=== PATIENT | female | born 1965 | race Caucasian/White ===

== ENCOUNTER 2017-09-26 11:42 | Inpatient (IN) | payer OTHER ==
[~2017-09-26] VITALS: Ht 157.5 cm; Wt 94.8 kg
[2017-09-26] VITALS (14 sets, daily range): BP systolic 105–160; BP diastolic 49–95
[2017-09-26] MEDS ORDERED: NORCO 5-325 TA1 EACH ORAL (13:02)
[2017-09-26] MEDS ORDERED: Bupivacaine 0.5% Inj 30 ml vial INJ ONE (13:44)
[2017-09-26] MEDS ORDERED: Thrombin 5000 units spray kit TOPIC ONE (13:44)
[2017-09-26] MEDS ORDERED: Thrombin 5000 units TOPIC ONE ×2 (13:44→13:52)
[2017-09-26] MEDS ORDERED: Bacitracin 50000 Units Vial ONE ×2 (13:45→13:53)
[2017-09-26] MEDS ORDERED: Gelfoam Absorbable 1gm powder pkt TOPIC ONE (13:45)
[2017-09-26] MEDS ORDERED: Ropivacaine 5mg/ml Vial 30ml INJ ONE (13:45)
[2017-09-26] MEDS ORDERED: Lidocaine 1% MPF 10mg/ml 5ml ONE (13:51)
[2017-09-26] MEDS ORDERED: Midazolam 2mg/2ml Inj ONE (13:51)
[2017-09-26] MEDS ORDERED: fentaNYL 100 mcg/2 mL IV ONE (13:51)
[2017-09-26] MEDS ORDERED: Naloxone 0.4mg/ml Inj IVP PRN (14:00)
--- NOTE | 2017-09-26 14:39 | Anethesia Preoperative Eval ---
Anesthesia Pre-op PMH/ROS General Date of Evaluation: September 26, 2017 Time of Evaluation: 14:28 Anesthesiologist: Ant ASA Score: ASA 3 Mallampati Score Class I : Soft palate, uvula, fauces, pillars visible Class II: Soft palate, uvula, fauces visible Class III: Soft palate, base of uvula visible Class IV: Only hard plate visible Mallampati Classification: Class III Surgeon: Zechariah Diagnosis: Cervical radiculopathy Surgical Procedure: ACDF c5-C6 Anesthesia History: none Social History: current smoker Family History: no anesthesia problems Allergies: Coded Allergies: SULFA (SULFONAMIDE ANTIBIOTICS) (Verified Allergy, Mild, 09/26/17) HIVES Past Medical History Cardiovascular: Reports: HTN - mild; Denies: CAD, RI, valve dz, arrhythmia, other Pulmonary: Reports: COPD - life long h/o smoking Gastrointestinal/Genitourinary: Reports: GERD - mild; Denies: CRI, ESRD, other Neurologic/Psychiatric: Reports: other - chronic pain Endocrine: Denies: DM, hypothyroidism, steroids, other HEENT: Denies: cataract (L), cataract (R), glaucoma, [place] (L), [place] (R), other Hematology/Immune: Denies: anemia, DVT, bleeding disorder, other Musculoskeletal/Integumentary: Denies: OA, RA, DJD, DDD, edema, other Other: obesity PMH Narrative: as above PSxH Narrative: BTL, repair of rectovaginal fistula Anesthesia Pre-op Phys. Exam Physician Exam Last Vital Signs Date Time Temp Pulse Resp B/P (MAP) Pulse Ox O2 Delivery O2 Flow Rate FiO2 09/26/17 13:07 98.2 103 20 139/95 95 Room Air 98.2 Constitutional: NAD Neurologic: CN 2-12 intact Cardiovascular: RRR, no M/R/G Respiratory: CTA Gastrointestinal: other - obesity Airway Exam Mallampati Score: Class III MO: limited Neck: short ROM: limited Teeth: intact Dentures: no upper, no lower Anesthesia Pre-op A/P Labs see chart Studies Pre-op Studies: EKG - SR Risk Assessment & Plan Assessment: ASA 3 Plan: GA with ETT neuromonitoring Status Change Before Surgery: No Pre-Antibiotics Drug: Ancef 2gr. Given Within 1 Hr of Incision: Yes Time Given: 14:45 MICHELLE WALTER M.D. September 26, 2017 14:39
[2017-09-26] MEDS ORDERED: LR 1000ml ONE (15:00)
[2017-09-26] MEDS ORDERED: Propofol 1,000mg/ 100ml btl IV ONE (15:00)
[2017-09-26] MEDS ORDERED: Neostigmine 1mg/ml 10ml Inj ONE ×2 (15:00→17:05)
[2017-09-26] MEDS ORDERED: NS Irrig 1000ml ONE (15:00)
[2017-09-26] MEDS ORDERED: Succinylcholine 20mg/ml 10ml vial ONE (15:00)
[2017-09-26] MEDS ORDERED: Glycopyrrolate 0.2mg/ml 1ml Vial ONE ×2 (15:00→17:05)
[2017-09-26] MEDS ORDERED: Sodium Chloride 10ml vial INJ ONE ×2 (15:00→15:57)
[2017-09-26] MEDS ORDERED: Zemuron 50mg/5ml Inj IV ONE (15:00)
[2017-09-26] MEDS ORDERED: Sterile Water Irrig 1000ml IRRIG ONE (15:00)
--- NOTE | 2017-09-26 15:49 | Pre-Procedure Note/Attestation ---
Pre-Procedure Note/Attestation Complete Prior to Procedure Planned Procedure: bilateral Indications for Procedure Pre-Operative Diagnosis: neck pain bilateral arm pain now dropping things large c 5-6 hnp Attestation I attest that I discussed the nature of the procedure; its benefits; risks and complications; and alternatives (and the risks and benefits of such alternatives ), prior to the procedure, with the patient (or the patient's legal sales and merchandising representative). I attest that, if there was a reasonable possibility of needing a blood transfusion, the patient (or the patient's legal sales and merchandising representative) was given the [facility] standardized written summary, pursuant to the Darvin Macy Blood Safety Act ([place] Health and Safety Code # 1645, as amended). I attest that I re-evaluated the patient just prior to the surgery and that there has been no change in the patient's H&P, except as documented below: Valerio Apple M.D. September 26, 2017 15:48
[2017-09-26] MEDS ORDERED: Morphine Sulfate 10mg/ml Inj ONE (15:54)
[2017-09-26] MEDS ORDERED: LR 1000ml 1,000 ML IVLG SCH (16:10)
[2017-09-26] MEDS ORDERED: Midazolam 2mg/2ml Inj IVP PRN (16:15)
[2017-09-26] MEDS ORDERED: Meperidine 50mg/ml Inj(FOR RIGORS ONLY) IV PRN (16:15)
[2017-09-26] MEDS ORDERED: Ketorolac 30mg Inj IV PRN (16:15)
[2017-09-26] MEDS ORDERED: DiphenhydrAMINE 50mg/ml Inj IVP PRN (16:15)
[2017-09-26] MEDS ORDERED: ceFAZolin sod 1 GM in D5W 55 ML IV SCH (16:30)
[2017-09-26] MEDS ORDERED: Ketorolac 30mg Inj ONE (17:06)
--- NOTE | 2017-09-26 17:35 | Brief Operative Note ---
Immediate Post Operative Note Operative Note Pre-op Diagnosis: neck pain bilateral arm pain now dropping things large c 5-6 hnp Procedure: C 5-6 anterior cervical diskectomy fusion cage andplate Post-op Diagnosis: same as pre-op Surgeon: Zechariah Event Designer: janak Anesthesia: general Specimen: yes Complications: none Condition: stable Fluids: 700 LR Estimated Blood Loss: minimal Drains: none Packing: none Implant(s) used?: Yes Valerio Apple M.D. September 26, 2017 17:35
--- NOTE | 2017-09-26 17:50 | Immediate Post-Op Evaluation ---
Immediate Post-Op Evalulation Immediate Post-Op Evalulation Procedure: ACDF C5-C6 Date of Evaluation: September 26, 2017 Time of Evaluation: 17:49 IV Fluids: 800 Blood Products: none Estimated Blood Loss: 50 Urinary Output: none Blood Pressure Systolic: 128 Blood Pressure Diastolic: 82 Pulse Rate: 90 Respiratory Rate: 22 O2 Sat by Pulse Oximetry: 98 Temperature (Fahrenheit): 98.9 Pain Score (1-10): 2 Nausea: No Vomiting: No Patient Status: patent, extubated Hydration Status: adequate MICHELLE WALTER M.D. September 26, 2017 17:50
--- NOTE | 2017-09-26 18:44 | Diagnostic Imaging Report ---
Indication: Pain, spinal surgery Technique: Intraoperative fluoroscopic image from spinal surgery submitted for archival the PACS. Operating surgeon: Valerio Apple M.D. Total fluoroscopy time 10 seconds Total fluoroscopy dose 1.59 mGy Findings: Fluoroscopic intraoperative images from cervical spinal surgery documenting anterior cervical fusion by means of metallic plates and screws. IMPRESSION: Intraoperative fluoroscopic imaging from spinal surgery. Please see operative report.
[2017-09-26] MEDS: fentaNYL 100 mcg/2 mL IV PRN ×2 (18:46→19:09)
--- NOTE | 2017-09-26 20:19 | Cardiology Progress Note ---
Assessment/Plan Assessment/Plan dvt ppx IS use ambualte adn eat alon tijerina hoefullytomorrow [id number] Objective Last 24 Hour Vital Signs Date Time Temp Pulse Resp B/P (MAP) Pulse Ox O2 Delivery O2 Flow Rate FiO2 09/26/17 19:56 37.2 09/26/17 19:53 98.9 09/26/17 19:28 98.9 76 22 114/60 95 Nasal Cannula 3.0 98.9 09/26/17 19:16 76 22 116/61 95 Nasal Cannula 3.0 09/26/17 19:09 70 22 105/49 95 Nasal Cannula 3.0 09/26/17 19:09 99.1 09/26/17 18:35 76 22 121/65 98 Nasal Cannula 3.0 09/26/17 18:22 77 22 126/68 98 Nasal Cannula 3.0 09/26/17 18:16 85 22 127/80 98 Nasal Cannula 3.0 09/26/17 18:16 99.1 09/26/17 18:00 104 22 131/77 98 Simple Mask 8.0 09/26/17 17:51 104 22 131/77 98 Simple Mask 8.0 09/26/17 17:50 210.0 90 22 98 09/26/17 17:46 102 22 128/82 98 Simple Mask 8.0 09/26/17 17:41 99.1 102 22 142/68 98 Simple Mask 8.0 99.1 09/26/17 13:07 98.2 103 20 139/95 95 Room Air 98.2 LUCINDA BREWSTER September 26, 2017 20:19
[2017-09-26] MEDS: D5 1/2NS 1,000 ML IV SCH (20:36)
[2017-09-26] MEDS: Morphine Sulfate 4mg/ml Inj IVP PRN (20:38)
[2017-09-26] MEDS: ceFAZolin sod 1 GM in D5W 55 ML IV SCH (21:51)
[2017-09-26] MEDS: HYDROcodone/Acetamin 7.5/325 tab ORAL PRN (22:04)
[2017-09-27] VITALS: BP 114/64
[2017-09-27] MEDS: D5 1/2NS 1,000 ML IV SCH ×2 (00:30→05:16)
[2017-09-27] MEDS: Morphine Sulfate 4mg/ml Inj IVP PRN (01:02)
[2017-09-27 04:00] VITALS: BP 119/66
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
--- NOTE | 2017-09-27 04:30 | Operative Note - Dictated ---
DATE OF OPERATION: 09/26/2017 HISTORY: This is a very pleasant 52-year-old female, preoperative diagnosis of C5-C6 herniated nucleus pulposus with C5-C6 retrolisthesis and significant cord compression. Preoperatively, the patient presented with severe neck pain unrelieved by prolonged conservative therapy, which included chiropractic and conventional physical therapy. She presented with neck pain, bilateral arm pain, and history of dropping things, difficulty turning doorknobs, and difficulty using keys and difficulty distinguishing coins in her pocket. Her situation was getting worse and she asked for something to be done, multiple choices were given to her including continue conservative management, injections, and operative management. She chose to proceed with operative management and therefore was indicated for surgery. PREOPERATIVE DIAGNOSIS: C5-C6 herniated nucleus pulposus with C5-C6 retrolisthesis and cord compression. POSTOPERATIVE DIAGNOSIS: C5-C6 herniated nucleus pulposus with C5-C6 retrolisthesis and cord compression. FINDINGS: Significant cord compression and bilateral femoral stenosis were identified. COMPLICATIONS: None. ESTIMATED BLOOD LOSS: Minimal. Procedure was done under spinal cord monitoring, which showed improvement throughout the decompression. SURGEON: Valerio Apple M.D. SALON/SPA MANAGER: Ashu Lozada M.D. ANESTHESIOLOGIST: Dayton Cain M.D. ANESTHESIA: General with endotracheal intubation. INSTRUMENTATION USED: Gurjit and Gurjit cage and plate. PROCEDURE: 1. Application of head-halter with head-halter traction. 2. Microscopic anterior cervical decompression at C5-C6, this included complete decompression of the spinal canal and neurologic structures including the spinal cord and nerve roots bilaterally. 3. C5-C6 anterior cervical fusion using distraction arthrodesis technique. 4. Insertion of a PEEK cage C5-C6. 5. Anterior stabilization using a contour plate at C5-C6. 6. Use of local bone graft. 7. Use of demineralized bone matrix. DESCRIPTION OF PROCEDURE: Under general anesthesia with endotracheal intubation, the patient was placed in the supine position on the operating table. She was placed in a head-halter traction and placed in 5-pounds of actual traction. Neck was prepped and draped in the usual manner. A transverse incision was made in the left side of the neck, which was carried down through the skin and subcutaneous tissue. Soft tissues were dissected off the platysma. Dissection was carried medial to the sternocleidomastoid muscle and medial to the carotid sheath. Once the spine was identified, longus colli muscles were elevated and a Cloward type retractor was inserted. The anterior protruding osteophytes were removed with a high-speed bur. Intraoperative radiographs confirmed the level of dissection. A 15 blade was used to incise the annulus and discs were removed with pituitary rongeurs. A distraction post was placed in C5 and C6. The interspace was further distracted. A was used to open up the interspace even further. Microscope was pulled into position. Under the operating room microscope, a high-speed terrance was used to decorticate the endplates and removed the posterior protruding osteophytes. A 1 mm and 2 mm 45 degree angle Kerrisons were used to perform bilateral foraminotomies. The OsteoSet curettes were used to open up the foramen further. Once this was confirmed and the foramen were decompressed bilaterally, there were large osteophytes that were then taken down using the bur. The posterior annulus was thickened. This was freed from the dura and then removed with 45-degree angle Kerrisons removing the posterior protrusion, decompressing the spinal canal and spinal cord. Once this was completed, hemostasis was achieved. The interspace was measured. It measured 7 mm. A 7 mm cage was then packed with local bone graft that had been harvested off the endplates. This was augmented with demineralized bone matrix. The cage was gently tapped into position under fluoroscopic control in direct vision under the microscope. Once this cage was sitting in good position, distraction was then removed, plates taken off the halter traction. The distraction posts were then removed. The plate was then contoured and applied to the spine using two screws in the body of C5 and two in the body of C6. All the screws were appropriately torqued and locked. Hemostasis was again achieved. The wound was inspected. The esophagus and trachea were inspected. They were noted to be atraumatic. The wound was then closed in layers using 2-0 for platysma and 5-0 for subcutaneous and subcuticular closure. Steri-Strips were applied to the wound. Sterile dressing was applied and the patient was then transferred to recovery room and judged to be in stable condition and neurologically unchanged. She stated that her arm pain was significantly reduced. Valerio Apple MD DR: RONNIE JOB#: [id number] CC: Valerio Apple M.D.; [email or web address]
[2017-09-27] MEDS: ceFAZolin sod 1 GM in D5W 55 ML IV SCH ×2 (05:17→11:05)
[2017-09-27 08:00] VITALS: BP 121/65
--- NOTE | 2017-09-27 08:03 | Orthopedic Progress Note ---
Orthopedic - Progress Note Subjective Symptoms: upper extremity numbness, improved Objective Vital Signs Last 24 Hour Vital Signs Date Time Temp Pulse Resp B/P (MAP) Pulse Ox O2 Delivery O2 Flow Rate FiO2 09/27/17 04:00 97.1 62 18 119/66 93 Nasal Cannula 3.0 97.1 09/27/17 00:00 97.5 74 17 114/64 93 Nasal Cannula 3.0 97.5 09/26/17 22:00 97.7 77 18 122/66 94 Nasal Cannula 3.0 97.7 09/26/17 20:45 96.2 98 16 160/90 94 Nasal Cannula 3.0 96.2 09/26/17 19:56 37.2 09/26/17 19:53 98.9 09/26/17 19:45 98.0 81 16 132/81 93 Nasal Cannula 3.0 98.0 09/26/17 19:30 95 Nasal Cannula 3.0 32 09/26/17 19:30 Nasal Cannula 3.0 32 09/26/17 19:28 98.9 76 22 114/60 95 Nasal Cannula 3.0 98.9 09/26/17 19:16 76 22 116/61 95 Nasal Cannula 3.0 09/26/17 19:09 70 22 105/49 95 Nasal Cannula 3.0 09/26/17 19:09 99.1 09/26/17 18:35 76 22 121/65 98 Nasal Cannula 3.0 09/26/17 18:22 77 22 126/68 98 Nasal Cannula 3.0 09/26/17 18:16 85 22 127/80 98 Nasal Cannula 3.0 09/26/17 18:16 99.1 09/26/17 18:00 104 22 131/77 98 Simple Mask 8.0 09/26/17 17:51 104 22 131/77 98 Simple Mask 8.0 09/26/17 17:50 210.0 90 22 98 09/26/17 17:46 102 22 128/82 98 Simple Mask 8.0 09/26/17 17:41 99.1 102 22 142/68 98 Simple Mask 8.0 99.1 09/26/17 13:07 98.2 103 20 139/95 95 Room Air 98.2 I&O Intake and Output 09/26/17 09/27/17 19:00 07:00 Intake Total 800 ml 900 ml Output Total 50 ml Balance 750 ml 900 ml Intake IV Total 800 ml 900 ml Output Estimated Blood Loss 50 ml # Voids 1 Wound: clean, dry, intact Drains: none Assessment Post-op Diagnosis c5-6 HNP Procedure Performed C 5-6 anterior cervical diskectomy fusion cage andplate Additional Comments discharge Plan Plan: discharge plan, discharge to home Valerio Apple M.D. September 27, 2017 08:03
[2017-09-27] MEDS: HYDROcodone/Acetamin 7.5/325 tab ORAL PRN (08:44)
[2017-09-27] MEDS ORDERED: Docusate 100mg cap ORAL SCH (09:00)
[2017-09-27] MEDS ORDERED: D5 1/2NS 1000ml IV ONE (10:24)
[2017-09-27] MEDS ORDERED: Tubing IV Secondary IV ONE (10:24)
[2017-09-27 10:50] VITALS: BP 125/72
--- NOTE | 2017-09-27 10:50 | 48 Hour Post Anesthesia Eval ---
Post Anesthesia Evaluation Procedure: ACDF C5-C6 Date of Evaluation: September 27, 2017 Time of Evaluation: 10:48 Blood Pressure Systolic: 125 0: 72 Pulse Rate: 68 Respiratory Rate: 22 Temperature (Fahrenheit): 98.1 O2 Sat by Pulse Oximetry: 97 Airway: patent Nausea: No Vomiting: No Pain Intensity: 2 Hydration Status: adequate Cardiopulmonary Status: stable Mental Status/LOC: patient returned to baseline Follow-up Care/Observations: n/a Post-Anesthesia Complications: none Follow-up care needed: ready to discharge Dayton Cain MD September 27, 2017 10:50
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
== END 2017-09-27 12:10 | disposition home or self-care (01) | DRG 473 ==
LOC: 3E 11:42
PROC: 0RB30ZZ Excision of Cervical Vertebral Disc, Open Approach (ICD-10-PCS; principal; 2017-09-26 13:00)
PROC: 00NW0ZZ Release Cervical Spinal Cord, Open Approach (ICD-10-PCS; principal; 2017-09-26 13:00)
PROC: 0RG10A0 Fusion of Cervical Vertebral Joint with Interbody Fusion Device, Anterior Approach, Anterior Column, Open Approach (ICD-10-PCS; principal; 2017-09-26 13:00)
DX: M50.022 Cervical disc disorder at C5-C6 level with myelopathy (principal); M50.122 Cervical disc disorder at C5-C6 level with radiculopathy; M43.12 Spondylolisthesis, cervical region; V43.5 Car driver injured in collision with car, pick-up truck or van in traffic accident; I10 Essential (primary) hypertension; F17.200 Nicotine dependence, unspecified, uncomplicated; Z88.2 Allergy status to sulfonamides; M48.061 Spinal stenosis, lumbar region without neurogenic claudication; E66.9 Obesity, unspecified
CPT/HCPCS: 36415; 72040; 76001; 86850; 86900; 86901; 87081; 94760; J2250; J2405; J2710